=== PATIENT | male | born 1955 | race Caucasian/White ===

== ENCOUNTER 2018-07-23 22:33 | Inpatient (IN) ==
[2018-07-23] MEDS ORDERED: ceFAZolin 2 GM Premix Inj 2 GM/50 ML PIGGYBACK IV.SIG ONE (22:37)
[2018-07-23] MEDS ORDERED: Diphtheria/Tetanus/Pertussis Vaccine Inj 0.5 ML Syringe IM ONE (22:37)
[2018-07-23] MEDS ORDERED: Lidocaine 2%/Epinephrine 1:100,000 30 ML MDV INFILTRATN ONE (22:38)
[2018-07-23] MEDS ORDERED: Sod Chloride 0.9% Inj 1,000 ML IV.CONT SCH (22:45)
--- NOTE | 2018-07-23 22:54 | ED ---
HPI General Chief complaint: Fall Stated complaint: fall Time Seen by Provider: 07/23/18 22:37 Source: patient Limitations: altered mental status (Related to alcohol intoxication) History of Present Illness HPI narrative: The patient is a 63 year old male who presents to the [facility] emergency department with a history of tripping and falling on stairs at [address] prior to arrival. The patient fell face first and hit his jaw. There was no reported loss of consciousness. The patient had 2 lacerations noted to his face, one on the lip and one involving the jaw. The patient reports having severe jaw pain. The patient has altered mentation with a GCS reportedly of 2 prior to arrival, however according to ambulance services the patient had been drinking alcohol this evening and was altered related to alcohol prior to falling. The patient reports that he is a daily drinker. He reports that he had 8 drinks today. He reports that he had 7 beers and 1 liquor drink at dinner. He denies having any neck pain, numbness or tingling to his extremities, weakness of his extremities. He denies having any chest pain, chest pressure, or shortness of breath. The patient is unsure when his tetanus was last updated. On review of systems otherwise, the patient denies having any known recent fevers, cough, congestion vomiting, diarrhea, urinary symptoms, or other neurologic symptoms. Related Data Home Medications Medication Instructions Recorded Confirmed No Known Home Medications 07/23/18 07/23/18 Allergies Allergy/AdvReac Type Severity Reaction Status Date / Time No Known Allergies Allergy Verified 07/23/18 22:38 Review of Systems ROS: all other systems reviewed are negative PMFSH Medical History Medical History Patient denies medical problems (Acute) Surgical History Surgical History No history of previous surgery (Acute) History of appendectomy (Acute) Social History Social History Substance History: No History of Abuse Second Hand Smoke Exposure: Yes Smoking Status: Light tobacco smoker Tobacco Type: Cigarettes How Often Do You Have a Drink Containing Alcohol: 4 or more times a week Recent Travel in [facility] within the Last 8 Weeks: No Recent Out of Country Travel within the Last 8 Weeks: No Immunization History Tetanus Immunization: Unsure Exam Const General: cooperative, no acute distress and well developed Nutritional Appearance: well nourished Orientation: alert, awake, oriented to person, oriented to place and not oriented to time [facility] Head: normocephalic and other (Patient has evidence of trauma to his face, tenderness on palpation of his mandible bilaterally, upper maxilla. In the midline just above his incisors.) Nose: other Face and sinus: other (Tender to palpation over the mandible) Mouth: moist mucous membranes Throat: posterior oropharynx normal and uvula midline Eyes Sclera: normal sclerae Pupils: PERRL Neck Neck: trachea midline, no JVD and other (The patient has a cervical collar in place. The patient arrives on a backboard.) Chest Chest: no crepitus and no tenderness Resp Effort & Inspection: no use of accessory muscles Auscultation: clear to auscultation bilaterally Cardio Rate: regular rate Rhythm: regular rhythm Heart Sounds: no murmurs GI Inspection: non-distended Palpation: soft, no hepatosplenomegaly and nontender Back/Spine/Pelvis Back: no CVA tenderness Thoracic/Lumbar Spine: No thoracic spinal tenderness and No lumbar spinal tenderness Skin General: dry skin (warm) Trauma: laceration (The patient has 2 lacerations on the face one involving the lower lip, the other one involving the chin.) Neuro General: alert, awake and oriented (Person and place, however not time.) Cranial Nerves: CN's II-XI intact bilaterally Speech: other Motor: no movement abnormalities noted (The patient's speech is slurred on examination. The patient has an odor of alcohol about him. ) Sensory Exam: no sensory deficits noted Extrem General: normal to inspection (2+ pulses in all 4 extremities.), no calf tenderness, no clubbing, no cyanosis and no edema Right upper extremity: normal to inspection and full ROM Left upper extremity: normal to inspection and full ROM Right lower extremity: normal to inspection and full ROM Left lower extremity: normal to inspection and full ROM Psych Mood: congruent mood Affect: normal affect Judgment: judgment good Procedures Laceration Laceration 1: Site: lip Size (cm): 2 Description: linear and clean Depth: simple, single layer Anesthetic used: lidocaine 1% Anesthesia technique:: local infiltration Amount (mL): 2 Pre-repair:: wound explored, irrigated extensively and deep structures intact Skin layer closed with: prolene Size (cm): 5-0 Number of sutures:: 2 Size:: 5-0 Number of sutures: 2 Tendon layer closed with: prolene Technique:: simple interrupted Laceration 2: Site: lip Size (cm): 3.5 Description: linear Depth: simple, single layer Anesthetic used: lidocaine 1% Anesthesia technique:: local infiltration and nerve block (Mental block) Amount (mL): 6 Pre-repair:: wound explored and irrigated extensively Size (cm): 5-0 Number of sutures:: 7 Technique:: simple, interrupted Laceration 3: Site: face (Chin) Size (cm): 4 Description: linear Depth: simple, single layer Anesthetic used: lidocaine 1% Amount (mL): 4 Pre-repair:: wound explored, irrigated extensively and deep structures intact Skin layer closed with: prolene Size (cm): 5-0 Number of sutures:: 1 Technique:: running Course Initial Documented Vital Signs Pulse Rate 88 07/23/18 22:36 Respiratory Rate 20 07/23/18 22:36 Blood Pressure 146/90 H 07/23/18 22:36 Pulse Oximetry 98 07/23/18 22:36 Last Documented Vital Signs Temperature 98.8 F 07/24/18 16:00 Pulse Rate 90 07/24/18 16:00 Respiratory Rate 18 07/24/18 16:00 Blood Pressure 167/94 H 07/24/18 16:00 Pulse Oximetry 96 07/24/18 16:00 Medical Decision Making MDM Narrative Medical decision making narrative: During the course of the patient's emergency department visit, the patient's history, examination, and differential diagnosis were reviewed with the patient. The patient was placed on a music leader with oximetry and frequent blood pressure monitoring. The patient had IV access obtained and blood work sent for analysis. A diagnostic evaluation was started regarding the patient's fall downstairs and facial trauma. The patient was initially provided Ancef 2 g IV, and update to his tetanus, normal saline IV fluids. Morphine for pain, Zofran for nausea. The patient's diagnostic studies are remarkable for an elevated alcohol level at 317, CBC is remarkable for normal hemoglobin, platelets are 165. lymphocytosis at 46.4, monocytosis of 12.8, PT 12, INR 1.2, PTT 23.8, fibrinogen within normal limits, chemistry is unremarkable, troponin I is less than 0.02, urinalysis is unremarkable. CT scan of the brain showed no evidence of acute intracranial hemorrhage, C-spine showed degenerative changes, no other acute abnormality. CT scan of the facial bones revealed multiple facial bone fractures. I spoke to Dr. Gold, the maxillofacial surgeon on-call. He will see the patient in consultation. Regarding the patient's facial lacerations, just the keel and the physician personalized living assistant was consulted regarding wound irrigation and repair. The patient's case including history, pertinent physical examination findings, and laboratory studies were discussed with Dr. Stewart, the trauma surgeon. It was agreed that the patient would be admitted to the trauma service. Medical Screen Exam Complete: Yes Emergency Medical Condition: Yes Differential Diagnosis Differential Diagnosis: Intracranial hemorrhage, versus cervical spine trauma, versus skull fracture, versus facial bone fractures, versus facial lacerations and contusions Medical Records Medical records reviewed: Yes I reviewed the patient's medical records. Lab Data Lab results reviewed: Yes I reviewed the patient's lab results. Result diagrams: 07/24/18 11:50 07/24/18 11:50 Lab Results 07/23/18 07/23/18 07/23/18 Range/Units 22:46 22:46 22:46 WBC 4.9 (4.0-11.0) th/mm3 RBC 4.12 L (4.50-5.90) mil/mm3 Hgb 14.7 (13.0-17.0) gm/dL POC Hgb (Calc) 14.6 (13.0-17.0) g/dL Hct 41.9 (39.0-51.0) % POC Hct 43.0 (39-51.0) % MCV 101.8 H (80.0-100.0) fL MCH 35.6 H (27.0-34.0) pg MCHC 35.0 (32.0-36.0) % RDW 12.6 (11.6-17.2) % Plt Count 165 (150-450) th/mm3 MPV 9.2 (7.0-11.0) fL Neut % (Auto) 35.3 (16.0-70.0) % Lymph % (Auto) 46.4 H (9.0-44.0) % [place] % (Auto) 12.8 H (0.0-8.0) % Eos % (Auto) 4.5 H (0.0-4.0) % Baso % (Auto) 1.0 (0.0-2.0) % Neut # (Auto) 1.7 L (1.8-7.7) th/mm3 Lymph # (Auto) 2.3 (1.0-4.8) th/mm3 [place] # (Auto) 0.6 (0.0-0.9) th/mm3 Eos # (Auto) 0.2 (0.0-0.4) th/mm3 Baso # (Auto) 0.0 (0.0-0.2) th/mm3 WBC Differential . Differential Comment Auto diff final PT 12.0 H (9.8-11.6) sec INR 1.2 Ratio APTT 23.8 L (24.3-30.1) sec Fibrinogen 246 (227-377) mg/dL POC Sodium 142 (137-144) mmol/L Sodium (136-145) meq/L POC Potassium 3.5 L (3.6-5.0) mmol/L Potassium (3.5-5.1) meq/L POC Chloride 101 L (102-111) mmol/L Chloride (98-107) meq/L Carbon Dioxide (21.0-32.0) meq/L Anion Gap (5-15) meq/L POC BUN 4 L (5-21) mg/dL BUN (7-18) mg/dL Creatinine (0.60-1.30) mg/dL POC Creatinine 1.0 (0.6-1.3) mg/dL Estimated GFR (>89) mL/min POC Glucose 154 H (68-110) mg/dL Random Glucose (74-106) mg/dL Calcium (8.5-10.1) mg/dL Troponin I Less than 0.02 L (0.02-0.05) ng/mL Urine Color (Yellw/Straw) Urine Clarity (Clear) Urine pH (5.0-8.5) Ur Specific [place] (1.002-1.035) Urine Protein (Neg-Trace) mg/dL Urine Glucose (UA) (Negative) mg/dL Urine Ketones (Negative) mg/dL Urine Occult Blood (Negative) Urine Nitrate (Negative) Urine Bilirubin (Negative) Urine Urobilinogen (Less than 2) mg/dL Ur Leukocyte Esterase (Negative) Urine RBC (0-3) /hpf Urine WBC (0-5) /hpf Urine Mucus (Occasional) /lpf Micro UA Comment Ur Microscopic Review Urine Culture Comments Urine Opiates Screen (Neg) Ur Barbiturates Screen (Neg) Ur Amphetamines Screen (Neg) U Benzodiazepines Scrn (Neg) Urine Cocaine Screen (Neg) U Cannabinoids Screen (Neg) Serum Alcohol 317 H (0-5) mg/dL Blood Type Blood Type Recheck Antibody Screen 07/23/18 07/24/18 07/24/18 Range/Units 22:46 08:20 08:20 WBC (4.0-11.0) th/mm3 RBC (4.50-5.90) mil/mm3 Hgb (13.0-17.0) gm/dL POC Hgb (Calc) (13.0-17.0) g/dL Hct (39.0-51.0) % POC Hct (39-51.0) % MCV (80.0-100.0) fL MCH (27.0-34.0) pg MCHC (32.0-36.0) % RDW (11.6-17.2) % Plt Count (150-450) th/mm3 MPV (7.0-11.0) fL Neut % (Auto) (16.0-70.0) % Lymph % (Auto) (9.0-44.0) % [place] % (Auto) (0.0-8.0) % Eos % (Auto) (0.0-4.0) % Baso % (Auto) (0.0-2.0) % Neut # (Auto) (1.8-7.7) th/mm3 Lymph # (Auto) (1.0-4.8) th/mm3 [place] # (Auto) (0.0-0.9) th/mm3 Eos # (Auto) (0.0-0.4) th/mm3 Baso # (Auto) (0.0-0.2) th/mm3 WBC Differential Differential Comment PT (9.8-11.6) sec INR Ratio APTT (24.3-30.1) sec Fibrinogen (227-377) mg/dL POC Sodium (137-144) mmol/L Sodium (136-145) meq/L POC Potassium (3.6-5.0) mmol/L Potassium (3.5-5.1) meq/L POC Chloride (102-111) mmol/L Chloride (98-107) meq/L Carbon Dioxide (21.0-32.0) meq/L Anion Gap (5-15) meq/L POC BUN (5-21) mg/dL BUN (7-18) mg/dL Creatinine (0.60-1.30) mg/dL POC Creatinine (0.6-1.3) mg/dL Estimated GFR (>89) mL/min POC Glucose (68-110) mg/dL Random Glucose (74-106) mg/dL Calcium (8.5-10.1) mg/dL Troponin I (0.02-0.05) ng/mL Urine Color Yellow (Yellw/Straw) Urine Clarity Clear (Clear) Urine pH 5.0 (5.0-8.5) Ur Specific [place] 1.011 (1.002-1.035) Urine Protein Negative (Neg-Trace) mg/dL Urine Glucose (UA) Negative (Negative) mg/dL Urine Ketones Negative (Negative) mg/dL Urine Occult Blood Negative (Negative) Urine Nitrate Negative (Negative) Urine Bilirubin Negative (Negative) Urine Urobilinogen Less than 2 (Less than 2) mg/dL Ur Leukocyte Esterase Negative (Negative) Urine RBC 1 (0-3) /hpf Urine WBC 1 (0-5) /hpf Urine Mucus Few H (Occasional) /lpf Micro UA Comment Culture not ind Ur Microscopic Review Not Reportable Urine Culture Comments Culture not ind Urine Opiates Screen Pos H (Neg) Ur Barbiturates Screen Neg (Neg) Ur Amphetamines Screen Neg (Neg) U Benzodiazepines Scrn Neg (Neg) Urine Cocaine Screen Neg (Neg) U Cannabinoids Screen Neg (Neg) Serum Alcohol (0-5) mg/dL Blood Type O Positive Blood Type Recheck Required Antibody Screen Negative 07/24/18 07/24/18 Range/Units 11:50 11:50 WBC 7.3 (4.0-11.0) th/mm3 RBC 3.98 L (4.50-5.90) mil/mm3 Hgb 14.3 (13.0-17.0) gm/dL POC Hgb (Calc) (13.0-17.0) g/dL Hct 40.0 (39.0-51.0) % POC Hct (39-51.0) % MCV 100.4 H (80.0-100.0) fL MCH 36.0 H (27.0-34.0) pg MCHC 35.9 (32.0-36.0) % RDW 12.6 (11.6-17.2) % Plt Count 140 L (150-450) th/mm3 MPV 8.7 (7.0-11.0) fL Neut % (Auto) (16.0-70.0) % Lymph % (Auto) (9.0-44.0) % [place] % (Auto) (0.0-8.0) % Eos % (Auto) (0.0-4.0) % Baso % (Auto) (0.0-2.0) % Neut # (Auto) (1.8-7.7) th/mm3 Lymph # (Auto) (1.0-4.8) th/mm3 [place] # (Auto) (0.0-0.9) th/mm3 Eos # (Auto) (0.0-0.4) th/mm3 Baso # (Auto) (0.0-0.2) th/mm3 WBC Differential Differential Comment PT (9.8-11.6) sec INR Ratio APTT (24.3-30.1) sec Fibrinogen (227-377) mg/dL POC Sodium (137-144) mmol/L Sodium 142 (136-145) meq/L POC Potassium (3.6-5.0) mmol/L Potassium 3.8 (3.5-5.1) meq/L POC Chloride (102-111) mmol/L Chloride 108 H (98-107) meq/L Carbon Dioxide 25.0 (21.0-32.0) meq/L Anion Gap 9 (5-15) meq/L POC BUN (5-21) mg/dL BUN 5 L (7-18) mg/dL Creatinine 0.63 (0.60-1.30) mg/dL POC Creatinine (0.6-1.3) mg/dL Estimated GFR Greater than 89 (>89) mL/min POC Glucose (68-110) mg/dL Random Glucose 107 H (74-106) mg/dL Calcium 8.2 L (8.5-10.1) mg/dL Troponin I (0.02-0.05) ng/mL Urine Color (Yellw/Straw) Urine Clarity (Clear) Urine pH (5.0-8.5) Ur Specific [place] (1.002-1.035) Urine Protein (Neg-Trace) mg/dL Urine Glucose (UA) (Negative) mg/dL Urine Ketones (Negative) mg/dL Urine Occult Blood (Negative) Urine Nitrate (Negative) Urine Bilirubin (Negative) Urine Urobilinogen (Less than 2) mg/dL Ur Leukocyte Esterase (Negative) Urine RBC (0-3) /hpf Urine WBC (0-5) /hpf Urine Mucus (Occasional) /lpf Micro UA Comment Ur Microscopic Review Urine Culture Comments Urine Opiates Screen (Neg) Ur Barbiturates Screen (Neg) Ur Amphetamines Screen (Neg) U Benzodiazepines Scrn (Neg) Urine Cocaine Screen (Neg) U Cannabinoids Screen (Neg) Serum Alcohol (0-5) mg/dL Blood Type Blood Type Recheck Antibody Screen Imaging Data Radiologist's impression: Chest X-Ray 07/23/18 22:37 CONCLUSION: No acute cardiopulmonary process. Fracture deformity at the lateral sixth rib. The age of this is not known. Pelvis X-Ray 07/23/18 22:37 CONCLUSION: Negative AP pelvis. Cervical Spine CT 07/23/18 22:38 CONCLUSION: 1. No acute bony injury seen. 2. Degenerative change as described above. Face CT 07/23/18 22:38 CONCLUSION: 1. Fracturing of the mandibular condyle regions bilaterally with displacement of the condylar heads. 2. Fracturing through the anterior aspect of the mandible slightly to the left of midline. 3. Fracturing the anterior inferior aspect of the maxilla around the upper incisor teeth. Head CT 07/23/18 22:38 CONCLUSION: 1. No acute intracranial abnormality. 2. Mild cortical atrophy. 3. Mandibular condyle fractures. The patient is to have a CT of the facial bones. . Wrist X-Ray 07/24/18 00:00 CONCLUSION: Minimally displaced oblique transverse distal left radial fracture Discharge Plan Discharge Disposition Patient Disposition: 30 Still Patient Discharge Details Diagnosis: Fall, Fracture, facial bones Physicians Team ED Provider: Sanjuana Mitchell ED Midlevel Provider: Jerry Radford Primary Care Provider: UNKNOWN, Attending Provider: Fab Martin Other Providers: Eddi Rick ; Mahendra Mckeon ; Systems[facility] ; Fab Martin ; Ruby Hernandez ; Chavez Sinha ; Candelaria Bonilla ; Abida Guajardo ; Yoko Mcbride ; Farhat Redman ; Lobito Presley ; Morgan Domingo Discharge Interventions Interventions: ED Discharge Assessment Last Done: 07/24/18 13:54 Status ED Status: Left Department Discharge Information Discharge Date/Time: 07/24/18 13:55
[2018-07-23] MEDS ORDERED: Morphine Inj 4 MG/ML Vial IV.PUSH ONE (22:59)
[2018-07-23 23:00] LABS: Eos # (Auto) 0.2 th/mm3 (0.0-0.4); Eos % (Auto) 4.5 % (0.0-4.0); Hematocrit 41.9 % (39.0-51.0); Hemoglobin 14.7 gm/dL (13.0-17.0); Lymph # (Auto) 2.3 th/mm3 (1.0-4.8); Lymph % (Auto) 46.4 % (9.0-44.0); Mean Corpuscular Hemoglobin 35.6 pg (27.0-34.0); Mean Corpuscular Volume 101.8 fL (80.0-100.0); Mean Platelet Volume 9.2 fL (7.0-11.0); Mono # (Auto) 0.6 th/mm3 (0.0-0.9); Mono % (Auto) 12.8 % (0.0-8.0); Neut # (Auto) 1.7 th/mm3 (1.8-7.7); Neut % (Auto) 35.3 % (16.0-70.0); Platelet Count 165 th/mm3 (150-450); Red Blood Count 4.12 mil/mm3 (4.50-5.90); Red Cell Distribution Width 12.6 % (11.6-17.2); White Blood Count 4.9 th/mm3 (4.0-11.0)
[2018-07-23 23:11] LABS: Activated Partial Thrombo Time 23.8 sec (24.3-30.1); INR 1.2 Ratio
--- NOTE | 2018-07-23 23:31 | XR ---
EXAM DATE: 07/23/2018 10:37 PM EDT AGE/SEX: 63 years / Male INDICATIONS: Fall, short of breath. CLINICAL DATA: This is the patient's initial encounter. Patient reports that signs and symptoms have been present for 1 day and indicates a pain score of 0/10. MEDICAL/SURGICAL HISTORY: Non-responsive. Non-responsive. COMPARISON: No prior exams available for comparison. FINDINGS: A single AP view of the chest demonstrates the lungs to be symmetrically aerated without evidence of mass, infiltrate or effusion. The cardiomediastinal contours are unremarkable. There is a deformity at the lateral left sixth rib. The age of this deformity is not known. CONCLUSION: No acute cardiopulmonary process. Fracture deformity at the lateral sixth rib. The age of this is not known. Electronically signed by: Clayton Pearson MD 07/23/2018 11:30 PM EDT
--- NOTE | 2018-07-23 23:32 | XR ---
EXAM DATE: 07/23/2018 10:37 PM EDT AGE/SEX: 63 years / Male INDICATIONS: Fall, trauma. CLINICAL DATA: This is the patient's initial encounter. Patient reports that signs and symptoms have been present for 1 day and indicates a pain score of Nonresponsive. MEDICAL/SURGICAL HISTORY: Non-responsive. Non-responsive. COMPARISON: No prior exams available for comparison. FINDINGS: Examination of the pelvis demonstrates no evidence of fracture or dislocation. Bony mineralization i s normal. There is no widening of the sacroiliac joints. No foreign body is identified. CONCLUSION: Negative AP pelvis. Electronically signed by: Clayton Pearson MD 07/23/2018 11:30 PM EDT
[2018-07-23 23:33] LABS: Alcohol 317 mg/dL (0-5)
--- NOTE | 2018-07-23 23:34 | CT ---
EXAM DATE: 07/23/2018 10:41 PM EDT AGE/SEX: 63 years / Male INDICATIONS: Trauma, fall down stairs. Laceration to chin. CLINICAL DATA: This is the patient's initial encounter. Patient reports that signs and symptoms have been present for 1 day and indicates a pain score of 5/10. MEDICAL/SURGICAL HISTORY: None. None. RADIATION DOSE: 66.34 CTDI (mGy) COMPARISON: [facility] [place], CT FACIAL BONES WO CON, 07/23/2018. . TECHNIQUE: CT of the head without contrast. Using automated exposure control and adjustment of the mA and/or kV according to patient size, radiation dose was kept as low as reasonably achievable to ob tain optimal diagnostic quality images. DICOM format image data is available electronically for revi ew and comparison. FINDINGS: Cerebrum: The ventricles and cortical sulci are widened. No evidence of midline shift, mass lesion, hemorrhage or acute infarction. No extraaxial fluid collections are seen. Posterior Fossa: The cerebellum and brainstem are intact. The 4th ventricle is midline. The cerebe llopontine angle is unremarkable. Extracranial: The visualized portion of the orbits is intact. Skull: The calvaria is intact. No evidence of skull fracture. There are mandibular condyle fracture seen bilaterally. CONCLUSION: 1. No acute intracranial abnormality. 2. Mild cortical atrophy. 3. Mandibular condyle fractures. The patient is to have a CT of the facial bones. . Electronically signed by: Clayton Pearson MD 07/23/2018 11:32 PM EDT
--- NOTE | 2018-07-23 23:38 | CT ---
EXAM DATE: 07/23/2018 10:41 PM EDT AGE/SEX: 63 years / Male INDICATIONS: Trauma, fall down stairs. Laceration to chin. CLINICAL DATA: This is the patient's initial encounter. Patient reports that signs and symptoms have been present for 1 day and indicates a pain score of 6/10. MEDICAL/SURGICAL HISTORY: None. None. RADIATION DOSE: 19.98 CTDI (mGy) COMPARISON: No prior exams available for comparison. TECHNIQUE: Contiguous axial images were obtained using helical multirow detector technique. The vol umetric data was post-processed with multiplanar reconstruction in oblique axial, sagittal, and coron al planes. Using automated exposure control and adjustment of the mA and/or kV according to patient s ize, radiation dose was kept as low as reasonably achievable to obtain optimal diagnostic quality eyal ges. DICOM format image data is available electronically for review and comparison. FINDINGS: Vertebrae: Normal vertebral body height. Alignment: Normal. No subluxation. C2-3: The bony spinal canal is normal in size. No evidence of disc bulge or herniation. The neural foramina are bilaterally patent. Mild anterior marginal osteophytes are present. C3-4: The distance is minimal loss of height. There is mild disc bulge. Osteophytic ridging is seen anteriorly and posteriorly. Mild impression on the thecal sac. The neural foramina are patent bilater ally. There is uncovertebral hypertrophy. C4-5: There is minimal posterior disc bulge. There is prominent anterior marginal osteophytes. Signi ficant stenosis is not seen. The neural foramina are patent bilaterally. There is mild facet hypertro phy especially on the right. C5-6: The disc demonstrates loss of height. There is mild to moderate diffuse disc bulge and osteoph ytic ridging being asymmetric and worse on the right. There is uncovertebral hypertrophy being worse on the left. Prominent anterior marginal osteophytes are seen. The neural foramina are grossly patent . C6-7: Disc demonstrates loss of height. There is mild disc bulge and osteophytic ridging. There is u ncovertebral hypertrophy being worse than the left. There is mild narrowing of the left neural forami na. Right neural foramina appears patent. C7-T1: The bony spinal canal is normal in size. No evidence of disc bulge or herniation. The neura l foramina are bilaterally patent. CONCLUSION: 1. No acute bony injury seen. 2. Degenerative change as described above. Electronically signed by: Clayton Pearson MD 07/23/2018 11:37 PM EDT
--- NOTE | 2018-07-23 23:44 | CT ---
EXAM DATE: 07/23/2018 10:41 PM EDT AGE/SEX: 63 years / Male INDICATIONS: Trauma, fall down stairs. Laceration to chin. CLINICAL DATA: This is the patient's initial encounter. Patient reports that signs and symptoms have been present for 1 day and indicates a pain score of 7/10. MEDICAL/SURGICAL HISTORY: None. None. RADIATION DOSE: 21.96 CTDI (mGy) COMPARISON: No prior exams available for comparison. TECHNIQUE: Contiguous images in the axial and coronal planes were obtained using helical multirow de tector technique. Using automated exposure control and adjustment of the mA and/or kV according to p atient size, radiation dose was kept as low as reasonably achievable to obtain optimal diagnostic edda lity images. DICOM format image data is available electronically for review and comparison. FINDINGS: There is fracturing of the mandibular condyle regions bilaterally. The condylar heads are displaced a nteriorly. The fracture on the left extends through the mandibular head. There is also fracturing of the anterior aspect of the mandible just to the left of midline. The mandibular fracture is seen betw een the 2 lower incisors. There is also fracturing of the anterior maxilla around the upper incisor t eeth Fracturing Orbits: The orbital and infraorbital osseous structures are intact. The retroconal structures have a normal configuration. No radiopaque foreign bodies are seen. Nasal Bone: The nasal bone and maxillary spine are intact. Zygomatic Arches: Symmetric without evidence of fracture. Sinuses: The maxillary, ethmoid, and frontal sinuses are intact. No air-fluid levels seen. Nasal Cavity: The nasal septum is intact and midline. The lacrimal ducts are intact. Soft Tissues: No radiopaque foreign bodies seen. No soft-tissue swelling is seen. Intracranial: No intracranial air seen. Cribriform Plate: Grossly intact. CONCLUSION: 1. Fracturing of the mandibular condyle regions bilaterally with displacement of the condylar heads. 2. Fracturing through the anterior aspect of the mandible slightly to the left of midline. 3. Fracturing the anterior inferior aspect of the maxilla around the upper incisor teeth. Electronically signed by: Clayton Pearson MD 07/23/2018 11:43 PM EDT
[2018-07-24] MEDS ORDERED: Morphine Inj 4 MG/ML Vial IV.PUSH ONE ×3 (00:10→05:00)
[2018-07-24] MEDS: Sod Chloride 0.9% Inj 1,000 ML IV.CONT SCH ×2 (05:34→18:33)
[2018-07-24] MEDS: Pantoprazole Inj 40 MG Vial IV.PUSH SCH (06:24)
[2018-07-24] MEDS ORDERED: Morphine Sulfate Inj 2 MG/ML Vial IV.PUSH PRN (06:37)
[2018-07-24 08:45] LABS: Bilirubin,Urine Negative (Negative); Clarity,Urine Clear (Clear); Color,Urine Yellow (Yellw/Straw); Glucose,Urine (UA) Negative (Negative); Leukocyte Esterase,Urine Negative (Negative); Mucus,Urine Few /lpf (Occasional); Nitrite,Urine Negative (Negative); Specific Gravity,Urine 1.011 (1.002-1.035)
--- NOTE | 2018-07-24 08:52 | XR ---
EXAM DATE: 07/24/2018 12:00 AM EDT AGE/SEX: 63 years / Male INDICATIONS: Left wrist pain, fall. CLINICAL DATA: This is the patient's initial encounter. Patient reports that signs and symptoms have been present for 2 days and indicates a pain score of 3/10. MEDICAL/SURGICAL HISTORY: None. None. COMPARISON: . FINDINGS: There is a minimally displaced fracture involving the distal radius with primarily transverse fractur e just proximal to the epiphyseal region. No significant angulation noted. The carpals appear intact. CONCLUSION: Minimally displaced oblique transverse distal left radial fracture Electronically signed by: Clayton Verdugo MD 07/24/2018 8:50 AM EDT
[2018-07-24 08:55] LABS: Amphetamine Screen,Urine Neg (Neg); Barbiturate Screen,Urine Neg (Neg); Cannabinoid Screen,Urine Neg (Neg); Cocaine Screen,Urine Neg (Neg); Opiate Screen,Urine Pos (Neg)
[2018-07-24] MEDS: Sodium Chloride 0.9% 2 ML Flush BID IV.FLUSH SCH ×2 (09:01→23:02)
--- NOTE | 2018-07-24 09:10 | MH ---
cc: Fab Martin MD DATE OF ADMISSION: 07/24/2018 HISTORY OF PRESENT ILLNESS: This is a 63-year-old male, who was brought in after falling. On evaluation in the emergency room, the patient was noted to have multiple facial fractures. Trauma service was requested for admission. The patient states that he tripped and fell. He is unsure of the distance of the fall. He states he was drinking alcohol prior to this, and he is on vacation. He complains of left wrist pain and face pain. No chest pain, no shortness of breath, no abdominal pain. No paresthesias. No headaches. PAST MEDICAL HISTORY: Negative. PAST SURGICAL HISTORY: Significant for appendectomy. ALLERGIES: HE HAS NO ALLERGIES. SOCIAL HISTORY: He does smoke. He drinks alcohol. FAMILY HISTORY: Noncontributory. PHYSICAL EXAMINATION: GENERAL: He is lying on a stretcher in no acute distress. HEENT: His pupils are equal and reactive. Sutured laceration to the lip. NECK: Trachea is midline. NECK: Nontender. No JVD. LUNGS: Clear. CARDIOVASCULAR: Regular. GASTROINTESTINAL: Soft, nontender. MUSCULOSKELETAL: No deformities. NEUROLOGIC: Nonfocal. LABORATORY DATA: The patient's hemoglobin is 14.7. Blood alcohol 317. RADIOLOGIC IMAGES: CT of the head negative. CT of the facial bones reveals fracture of the mandibular condyle bilaterally, fracture through the anterior aspect of the mandibular, and maxilla fracture. CT of the cervical spine: No fracture. Chest x-ray: No acute disease. Pelvic x-ray: No fracture. ASSESSMENT AND PLAN: This is a patient status post fall, while intoxicated with facial fractures. Consult has been placed to oral maxillofacial surgery. The patient is being admitted. We will provide pain management. Monitor respiratory and neurological status. Fab Martin MD JLAdalberto/tawanna , 08:20 AM , 08:28 AM
[2018-07-24] MEDS: Multivitamin Inj 10 ML, Thiamine Inj 100 MG, Folic Acid Inj 1 MG in Sodium Chlor 0.9% I... IV.SIG SCH (10:03)
[2018-07-24] MEDS: Morphine Inj 4 MG/ML Vial IV.PUSH PRN ×4 (10:03→23:56)
[2018-07-24 12:02] LABS: Hemoglobin 14.3 gm/dL (13.0-17.0); Mean Corpuscular HGB Conc 35.9 % (32.0-36.0); Mean Corpuscular Volume 100.4 fL (80.0-100.0); Mean Platelet Volume 8.7 fL (7.0-11.0); Platelet Count 140 th/mm3 (150-450); Red Blood Count 3.98 mil/mm3 (4.50-5.90); Red Cell Distribution Width 12.6 % (11.6-17.2); White Blood Count 7.3 th/mm3 (4.0-11.0)
[2018-07-24 12:25] LABS: Anion Gap 9 meq/L (5-15); Blood Urea Nitrogen 5 mg/dL (7-18); Calcium 8.2 mg/dL (8.5-10.1); Chloride 108 meq/L (98-107); Glomerular Filtration Rate Greater Than 89 mL/min (>89); Glucose,Random 107 mg/dL (74-106); Potassium 3.8 meq/L (3.5-5.1); Sodium 142 meq/L (136-145)
--- NOTE | 2018-07-24 20:30 | P.CONOP ---
[facility] Orthopedics Consult Note - [facility] Consult date: 07/24/18 Requesting physician: Abida Guajardo Consult reason: fracture, low back pain Chief complaint: Facial Bone Fxs, Facial Lacs, Alcohol Intoxication Narrative: 63 yo M presents s/p fall down stairs. Admitted to trauma for facial fractures. Orthopedics consulted for left distal radius fracture. At bedside, patient endorses left wrist pain. Denies pain elsewhere about the upper/lower extremities. Denies paresthesias. Review of Systems Constitutional: Denies fever(s), Denies weight loss Eyes: Denies blurry vision Ears, Nose, Mouth, and Throat: Denies abnormal hearing Cardiovascular: Denies chest pain, Denies shortness of breath with activity Respiratory: Denies cough Gastrointestinal: Denies abdominal pain Musculoskeletal: Reports joint pain Neurologic: Denies tingling/numbness/burning sensations PMFSH - History History Provided By: Patient - Medical History Medical History: Medical History (Last Updated 07/23/18 @ 22:36 by Joanie Nam RN) Patient denies medical problems - Surgical History Surgical History: Surgical History (Last Updated 07/23/18 @ 22:58 by Sanjuana Mitchell MD) No history of previous surgery History of appendectomy - Tobacco History Second Hand Smoke Exposure: Yes Tobacco Use In Past 30 Days: Yes Smoking Status: Light tobacco smoker Tobacco Type: Cigarettes - Alcohol History How Often Do You Have a Drink Containing Alcohol: 4 or more times a week - Substance Use History Substance History: No History of Abuse - Travel History Recent Travel in the [place] Within the Last 8 Weeks: No Recent Travel Out of the Country Within the Last 8 Weeks: No - Immunization History Tetanus Immunization: Unsure Hx Influenza Vaccine This Season: Yes Medications and Allergies Active Medications: Active Medications Al Hydroxide/Mg Hydroxide (Milk Of Magnesia Liq) 30 ml PO Q6H PRN PRN Reason: CONSTIPATION Enalaprilat (Vasotec Inj) 1.25 mg IV.PUSH Q8H PRN PRN Reason: Blood pressure 180/95 Fentanyl (Duragesic 50 Mcg Patch.72hr) 1 patch T-DERMAL Q3D [facility] Last Admin: 07/24/18 13:00 Dose: 1 patch Sodium Chloride (Ns Inj) 1,000 mls @ 100 mls/hr IV.CONT .Q10H [facility] Last Admin: 07/24/18 18:33 Dose: 100 mls/hr Multivitamins 10 ml/ Thiamine HCl 100 mg/ Folic Acid 1 mg/Sodium Chloride 511.2 mls @ 127.8 mls/hr IV.SIG DAILY [facility] Stop: 07/26/18 12:59 Last Infusion: 07/24/18 18:17 Dose: Infused Morphine Sulfate (Morphine Inj) 4 mg IV.PUSH Q3H PRN PRN Reason: BREAKTHROUGH PAIN Last Admin: 07/24/18 15:54 Dose: 4 mg Ondansetron HCl (Zofran Inj) 4 mg IV.PUSH Q6H PRN PRN Reason: NAUSEA OR VOMITING Pantoprazole Sodium (Protonix Inj) 40 mg IV.PUSH Q24H [facility] Last Admin: 07/24/18 06:24 Dose: 40 mg Patch Removal (Remove Old Patch) 1 each T-DERMAL Q3D [facility] Sodium Chloride (Ns Flush) 2 ml IV.FLUSH UNSCH PRN PRN Reason: FLUSH AFTER USING IV ACCESS Sodium Chloride (Ns Flush) 2 ml IV.FLUSH BID [facility] Last Admin: 07/24/18 09:01 Dose: 2 ml Allergies Allergy/AdvReac Type Severity Reaction Status Date / Time No Known Allergies Allergy Verified 07/23/18 22:38 Home Medications Medication Instructions Recorded Confirmed Type No Known Home Medications 07/23/18 07/23/18 History Exam Vital signs: Vital Signs 07/23/18 22:36 07/23/18 22:37 07/23/18 22:38 Temperature Pulse Rate 88 82 Respiratory Rate 20 18 Blood Pressure 146/90 H Pulse Oximetry 98 96 96 07/23/18 23:22 07/24/18 00:00 07/24/18 01:00 Temperature Pulse Rate 88 92 H 92 H Respiratory Rate 20 20 20 Blood Pressure 138/77 141/79 H 120/68 Pulse Oximetry 96 97 96 07/24/18 02:24 07/24/18 02:50 07/24/18 04:54 Temperature Pulse Rate 76 88 82 Respiratory Rate 20 20 Blood Pressure 137/80 117/69 Pulse Oximetry 95 98 07/24/18 05:33 07/24/18 05:36 07/24/18 07:05 Temperature Pulse Rate 84 84 94 H Respiratory Rate 20 20 Blood Pressure 125/73 125/73 Pulse Oximetry 96 96 98 07/24/18 07:34 07/24/18 12:00 07/24/18 16:00 Temperature 98.5 F 98.8 F Pulse Rate 84 90 Respiratory Rate 18 18 Blood Pressure 167/97 H 167/94 H Pulse Oximetry 95 98 96 07/24/18 17:55 Temperature Pulse Rate Respiratory Rate Blood Pressure Pulse Oximetry 96 Intake & Output 07/24/18 07/24/18 07/25/18 06:59 18:59 06:59 Intake Total 1050 / 1050 2904.0 / 2904.0 Output Total 1377 / 1377 Balance 1050 / 1050 1527.0 / 1527.0 Weight 63.503 kg Intake: IV 1050 / 1050 2004.0 / 2004.0 NS Inj 1,000 ML @ 100 mls/hr IV 1000 / 1000 1484 / 1484 .CONT .Q10H [facility] Rx#:[id number] MVI-12 Inj 10 ML Thiamine Inj 520.0 / 520.0 100 MG Folvite Inj 1 MG In NS Inj 500 ML @ 127.8 mls/hr IV. SIG DAILY [facility] Rx#:[id number] Ancef 2 GM Premix Inj 2 gm In 50 / 50 50 ml @ 100 mls/hr IV.SIG ONCE ONE Rx#:[id number] Oral 900 / 900 Output: Urine 1377 / 1377 Other: # Voids 1 - Constitutional no acute distress - Routine HEENT Exam Head: Present: normocephalic, facial swelling - Routine Neck Exam Present: trachea midline - Routine Respiratory Exam Absent: accessory muscle use - Routine Cardiovascular Exam Present: RRR - Routine Abdominal Exam Present: soft. Absent: distended - Routine Extremities Exam Comments: Screening evaluation of bilateral lower and right upper extremity demonstrate painless ROM of the joints without crepitus. There is left wrist edema with tenderness to palpation over the distal radius. Full wrist flex/extension. Full hand ROM. Sensation is in tact the median/radial/ulnar nerve distribution. 2+ radial pulse. - Routine Neurological Exam Present: alert, oriented X3. Absent: motor deficit Results - Labs Result Diagrams: 07/24/18 11:50 07/24/18 11:50 Labs: Laboratory Results - last 24 hr 07/23/18 07/23/18 07/23/18 22:46 22:46 22:46 WBC 4.9 RBC 4.12 L Hgb 14.7 POC Hgb (Calc) 14.6 Hct 41.9 POC Hct 43.0 MCV 101.8 H MCH 35.6 H MCHC 35.0 RDW 12.6 Plt Count 165 MPV 9.2 Neut % (Auto) 35.3 Lymph % (Auto) 46.[address] [place] % (Auto) 12.8 H Eos % (Auto) 4.5 H Baso % (Auto) 1.0 Neut # (Auto) 1.7 L Lymph # (Auto) 2.3 [place] # (Auto) 0.6 Eos # (Auto) 0.2 Baso # (Auto) 0.0 WBC Differential . Differential Comment Auto diff final PT 12.0 H INR 1.2 APTT 23.8 L Fibrinogen 246 POC Sodium 142 Sodium POC Potassium 3.5 L Potassium POC Chloride 101 L Chloride Carbon Dioxide Anion Gap POC BUN 4 L BUN Creatinine POC Creatinine 1.0 Estimated GFR POC Glucose 154 H Random Glucose Calcium Troponin I Less than 0.02 L Urine Color Urine Clarity Urine pH Ur Specific [place] Urine Protein Urine Glucose (UA) Urine Ketones Urine Occult Blood Urine Nitrate Urine Bilirubin Urine Urobilinogen Ur Leukocyte Esterase Urine RBC Urine WBC Urine Mucus Micro UA Comment Ur Microscopic Review Urine Culture Comments Urine Opiates Screen Ur Barbiturates Screen Ur Amphetamines Screen U Benzodiazepines Scrn Urine Cocaine Screen U Cannabinoids Screen Serum Alcohol 317 H Blood Type Blood Type Recheck Antibody Screen 07/23/18 07/24/18 07/24/18 22:46 08:20 08:20 WBC RBC Hgb POC Hgb (Calc) Hct POC Hct MCV MCH MCHC RDW Plt Count MPV Neut % (Auto) Lymph % (Auto) [place] % (Auto) Eos % (Auto) Baso % (Auto) Neut # (Auto) Lymph # (Auto) [place] # (Auto) Eos # (Auto) Baso # (Auto) WBC Differential Differential Comment PT INR APTT Fibrinogen POC Sodium Sodium POC Potassium Potassium POC Chloride Chloride Carbon Dioxide Anion Gap POC BUN BUN Creatinine POC Creatinine Estimated GFR POC Glucose Random Glucose Calcium Troponin I Urine Color Yellow Urine Clarity Clear Urine pH 5.0 Ur Specific [place] 1.011 Urine Protein Negative Urine Glucose (UA) Negative Urine Ketones Negative Urine Occult Blood Negative Urine Nitrate Negative Urine Bilirubin Negative Urine Urobilinogen Less than 2 Ur Leukocyte Esterase Negative Urine RBC 1 Urine WBC 1 Urine Mucus Few H Micro UA Comment Culture not ind Ur Microscopic Review Not Reportable Urine Culture Comments Culture not ind Urine Opiates Screen Pos H Ur Barbiturates Screen Neg Ur Amphetamines Screen Neg U Benzodiazepines Scrn Neg Urine Cocaine Screen Neg U Cannabinoids Screen Neg Serum Alcohol Blood Type O Positive Blood Type Recheck Required Antibody Screen Negative 07/24/18 07/24/18 11:50 11:50 WBC 7.3 RBC 3.98 L Hgb 14.3 POC Hgb (Calc) Hct 40.0 POC Hct MCV 100.4 H MCH 36.0 H MCHC 35.9 RDW 12.6 Plt Count 140 L MPV 8.7 Neut % (Auto) Lymph % (Auto) [place] % (Auto) Eos % (Auto) Baso % (Auto) Neut # (Auto) Lymph # (Auto) [place] # (Auto) Eos # (Auto) Baso # (Auto) WBC Differential Differential Comment PT INR APTT Fibrinogen POC Sodium Sodium 142 POC Potassium Potassium 3.8 POC Chloride Chloride 108 H Carbon Dioxide 25.0 Anion Gap 9 POC BUN BUN 5 L Creatinine 0.63 POC Creatinine Estimated GFR Greater than 89 POC Glucose Random Glucose 107 H Calcium 8.2 L Troponin I Urine Color Urine Clarity Urine pH Ur Specific [place] Urine Protein Urine Glucose (UA) Urine Ketones Urine Occult Blood Urine Nitrate Urine Bilirubin Urine Urobilinogen Ur Leukocyte Esterase Urine RBC Urine WBC Urine Mucus Micro UA Comment Ur Microscopic Review Urine Culture Comments Urine Opiates Screen Ur Barbiturates Screen Ur Amphetamines Screen U Benzodiazepines Scrn Urine Cocaine Screen U Cannabinoids Screen Serum Alcohol Blood Type Blood Type Recheck Antibody Screen - Diagnostic results Imaging: Impressions Chest X-Ray 07/23/18 22:37 CONCLUSION: No acute cardiopulmonary process. Fracture deformity at the lateral sixth rib. The age of this is not known. Pelvis X-Ray 07/23/18 22:37 CONCLUSION: Negative AP pelvis. Cervical Spine CT 07/23/18 22:38 CONCLUSION: 1. No acute bony injury seen. 2. Degenerative change as described above. Face CT 07/23/18 22:38 CONCLUSION: 1. Fracturing of the mandibular condyle regions bilaterally with displacement of the condylar heads. 2. Fracturing through the anterior aspect of the mandible slightly to the left of midline. 3. Fracturing the anterior inferior aspect of the maxilla around the upper incisor teeth. Head CT 07/23/18 22:38 CONCLUSION: 1. No acute intracranial abnormality. 2. Mild cortical atrophy. 3. Mandibular condyle fractures. The patient is to have a CT of the facial bones. . Wrist X-Ray 07/24/18 00:00 CONCLUSION: Minimally displaced oblique transverse distal left radial fracture Wrist/Hand x-ray: report reviewed, image reviewed Assessment and Plan - Assessment and Plan 63 yo M s/p fall with a nondisplaced distal radius fracture. - [employer] to apply short arm splint - NWB left upper extremity - Edema control, finger ROM - Recommend non-op management. Reviewed this plan of care with patient. Plans for outpatient follow up near his home in [place] for transition to custom made OT splint versus short arm cast. - All questions/concerns addressed at bedside.
--- NOTE | 2018-07-24 20:37 | P.CON ---
History of Present Illness Service: Plastic surgery Consult date: 07/24/18 Primary Care Provider: UNKNOWN Chief Complaint: Facial fractures History of Present Illness: History obtained from chart and patient HPI narrative: The patient is a 63 year old male who presents to the [facility] emergency department with a history of tripping and falling on stairs at [place] prior to arrival. The patient fell face first and hit his jaw. There was no reported loss of consciousness. The patient had 2 lacerations noted to his face, one on the lip and one involving the jaw. The patient reported having severe jaw pain. The patient has altered mentation with a GCS reportedly of 2 prior to arrival, however according to ambulance services the patient had been drinking alcohol this evening and was altered related to alcohol prior to falling. The patient reports that he is a daily drinker. He reports that he had 8 drinks today. He reports that he had 7 beers and 1 liquor drink at dinner. He denies having any neck pain, numbness or tingling to his extremities, weakness of his extremities. He denies having any chest pain, chest pressure, or shortness of breath. The patient is unsure when his tetanus was last updated. On review of systems otherwise, the patient denies having any known recent fevers, cough, congestion vomiting, diarrhea, urinary symptoms, or other neurologic symptoms. Related Data Home Medications Medication Instructions Recorded Confirmed No Known Home Medications 07/23/18 07/23/18 Allergies Allergy/AdvReac Type Severity Reaction Status Date / Time No Known Allergies Allergy Verified 07/23/18 22:38 Review of Systems ROS: all other systems reviewed are negative except as noted in the HPI [facility] Medical History Medical History Patient denies medical problems (Acute) Surgical History Surgical History No history of previous surgery (Acute) History of appendectomy (Acute) Social History Social History Substance History: No History of Abuse Second Hand Smoke Exposure: Yes Smoking Status: Light tobacco smoker Tobacco Type: Cigarettes How Often Do You Have a Drink Containing Alcohol: 4 or more times a week Recent Travel in [facility] within the Last 8 Weeks: No Recent Out of Country Travel within the Last 8 Weeks: No Immunization History Tetanus Immunization: Unsure Family history noncontributory to presenting complaint [facility] - History History Provided By: Patient - Medical History Medical History: Medical History (Last Updated 07/23/18 @ 22:36 by Joanie Nam RN) Patient denies medical problems - Surgical History Surgical History: Surgical History (Last Updated 07/23/18 @ 22:58 by Sanjuana Mitchell MD) No history of previous surgery History of appendectomy - Tobacco History Second Hand Smoke Exposure: Yes Tobacco Use In Past 30 Days: Yes Smoking Status: Light tobacco smoker Tobacco Type: Cigarettes - Alcohol History How Often Do You Have a Drink Containing Alcohol: 4 or more times a week - Substance Use History Substance History: No History of Abuse - Travel History Recent Travel in the [place] Within the Last 8 Weeks: No Recent Travel Out of the Country Within the Last 8 Weeks: No - Immunization History Tetanus Immunization: Unsure Hx Influenza Vaccine This Season: Yes Medications and Allergies Active Medications: Active Medications Al Hydroxide/Mg Hydroxide (Milk Of Magntonio Liq) 30 ml PO Q6H PRN PRN Reason: CONSTIPATION Enalaprilat (Vasotec Inj) 1.25 mg IV.PUSH Q8H PRN PRN Reason: Blood pressure 180/95 Fentanyl (Duragesic 50 Mcg Patch.72hr) 1 patch T-DERMAL Q3D [facility] Last Admin: 07/24/18 13:00 Dose: 1 patch Sodium Chloride (Ns Inj) 1,000 mls @ 100 mls/hr IV.CONT .Q10H [facility] Last Admin: 07/24/18 18:33 Dose: 100 mls/hr Multivitamins 10 ml/ Thiamine HCl 100 mg/ Folic Acid 1 mg/Sodium Chloride 511.2 mls @ 127.8 mls/hr IV.SIG DAILY [facility] Stop: 07/26/18 12:59 Last Infusion: 07/24/18 18:17 Dose: Infused Morphine Sulfate (Morphine Inj) 4 mg IV.PUSH Q3H PRN PRN Reason: BREAKTHROUGH PAIN Last Admin: 07/24/18 15:54 Dose: 4 mg Ondansetron HCl (Zofran Inj) 4 mg IV.PUSH Q6H PRN PRN Reason: NAUSEA OR VOMITING Pantoprazole Sodium (Protonix Inj) 40 mg IV.PUSH Q24H [facility] Last Admin: 07/24/18 06:24 Dose: 40 mg Patch Removal (Remove Old Patch) 1 each T-DERMAL Q3D [facility] Sodium Chloride (Ns Flush) 2 ml IV.FLUSH UNSCH PRN PRN Reason: FLUSH AFTER USING IV ACCESS Sodium Chloride (Ns Flush) 2 ml IV.FLUSH BID [facility] Last Admin: 07/24/18 09:01 Dose: 2 ml Allergies Allergy/AdvReac Type Severity Reaction Status Date / Time No Known Allergies Allergy Verified 07/23/18 22:38 Home Medications Medication Instructions Recorded Confirmed Type No Known Home Medications 07/23/18 07/23/18 History Physical Exam Vital signs: Vital Signs 07/23/18 22:36 07/23/18 22:37 07/23/18 22:38 Temperature Pulse Rate 88 82 Respiratory Rate 20 18 Blood Pressure 146/90 H Pulse Oximetry 98 96 96 07/23/18 23:22 07/24/18 00:00 07/24/18 01:00 Temperature Pulse Rate 88 92 H 92 H Respiratory Rate 20 20 20 Blood Pressure 138/77 141/79 H 120/68 Pulse Oximetry 96 97 96 07/24/18 02:24 07/24/18 02:50 07/24/18 04:54 Temperature Pulse Rate 76 88 82 Respiratory Rate 20 20 Blood Pressure 137/80 117/69 Pulse Oximetry 95 98 07/24/18 05:33 07/24/18 05:36 07/24/18 07:05 Temperature Pulse Rate 84 84 94 H Respiratory Rate 20 20 Blood Pressure 125/73 125/73 Pulse Oximetry 96 96 98 07/24/18 07:34 07/24/18 12:00 07/24/18 16:00 Temperature 98.5 F 98.8 F Pulse Rate 84 90 Respiratory Rate 18 18 Blood Pressure 167/97 H 167/94 H Pulse Oximetry 95 98 96 07/24/18 17:55 Temperature Pulse Rate Respiratory Rate Blood Pressure Pulse Oximetry 96 Intake & Output 07/24/18 07/24/18 07/25/18 06:59 18:59 06:59 Intake Total 1050 / 1050 2904.0 / 2904.0 Output Total 1377 / 1377 Balance 1050 / 1050 1527.0 / 1527.0 Weight 63.503 kg Intake: IV 1050 / 1050 2004.0 / 2004.0 NS Inj 1,000 ML @ 100 mls/hr IV 1000 / 1000 1484 / 1484 .CONT .Q10H [facility] Rx#:[id number] MVI-12 Inj 10 ML Thiamine Inj 520.0 / 520.0 100 MG Folvite Inj 1 MG In NS Inj 500 ML @ 127.8 mls/hr IV. SIG DAILY [facility] Rx#:[id number] Ancef 2 GM Premix Inj 2 gm In 50 / 50 50 ml @ 100 mls/hr IV.SIG ONCE ONE Rx#:[id number] Oral 900 / 900 Output: Urine 1377 / 1377 Other: # Voids 1 Narrative: No apparent anxiety moist mucous membranes PERRLA skin without rash respirations nonlabored moves all 4 extremities to command digits warm well perfused Moderate bilateral facial edema Anterior mental and submental lacerations well apposed Severe anterior open bite Loose maxillary incisors Decreased subjective V3 sensation bilaterally Cranial nerves intact by exam No nasal septal hematoma Maxillofacial CT images personally reviewed by me showing comminuted displaced bilateral mandibular condyle fractures as well as maxillary incisor dentoalveolar fractures Assessment and Plan - Assessment (1) Closed fracture of dentoalveolar bone Status: Acute (2) Bilateral fracture of head of condyle and midline fracture of mandible Code(s): S02.69XA - Fracture of mandible of other specified site, initial encounter for closed fracture Status: Acute - Plan 63-year-old male status post fall, with symphyseal mandibular fracture in conjunction with comminuted displaced bilateral mandibular condyle head fracture in addition to maxillary incisor dentoalveolar fracture Risk benefits alternative treatments discussed All questions answered and the patient and patient's family expressed understanding Specifically discussed with patient that the recommendation will be for open reduction internal fixation of the symphyseal fracture as well as maximum angular fixation as treatment of his condylar fractures Discussed at length that I would not recommend opening the temporomandibular joints as his condylar heads are comminuted and it would only increase the risk of ankylosis Therefore the recommended treatment would be for MMF of the condylar fractures, and ORIF only of the symphyseal fracture However advised the patient that he will likely have a postoperative open bite which will require follow-up As well patient expresses understanding that he will be in maximal mandibular fixation with his jaws wired shut for recommended 2-3 weeks, followed by dental elastics Patient reports that he will be returning home shortly after the surgery, and expresses understanding that he will need to seek follow-up once he arrives Patient currently scheduled for this Sunday
[2018-07-25] MEDS: Sod Chloride 0.9% Inj 1,000 ML IV.CONT SCH ×3 (05:47→20:23)
[2018-07-25] MEDS: Morphine Inj 4 MG/ML Vial IV.PUSH PRN ×3 (05:48→15:41)
[2018-07-25] MEDS: Pantoprazole Inj 40 MG Vial IV.PUSH SCH (05:48)
--- NOTE | 2018-07-25 07:07 | XR ---
EXAM DATE: 07/25/2018 12:00 AM EDT AGE/SEX: 63 years / Male INDICATIONS: Short of breath, follow up trauma CLINICAL DATA: This is the patient's subsequent encounter. Patient reports that signs and symptoms h ave been present for 2 days and indicates a pain score of 5/10. MEDICAL/SURGICAL HISTORY: . fall, wrist fracture, mandible fracture None. COMPARISON: C, CHEST 1V SINGLE AP, 07/23/2018. . FINDINGS: No new focal pleural or parenchymal opacities. The cardiomediastinal contours are unremarkable. Left lateral sixth rib nondisplaced deformity is unchanged. CONCLUSION: 1. No acute abnormality or significant interval change. Electronically signed by: Jose Toribio MD 07/25/2018 7:06 AM EDT
[2018-07-25 08:45] LABS: Baso % (Auto) 0.5 % (0.0-2.0); Eos # (Auto) 0.1 th/mm3 (0.0-0.4); Eos % (Auto) 1.4 % (0.0-4.0); Hematocrit 37.9 % (39.0-51.0); Hemoglobin 13.2 gm/dL (13.0-17.0); Lymph # (Auto) 0.9 th/mm3 (1.0-4.8); Lymph % (Auto) 15.6 % (9.0-44.0); Mean Corpuscular HGB Conc 34.7 % (32.0-36.0); Mean Corpuscular Hemoglobin 35.2 pg (27.0-34.0); Mean Corpuscular Volume 101.3 fL (80.0-100.0); Mean Platelet Volume 9.4 fL (7.0-11.0); Mono # (Auto) 0.9 th/mm3 (0.0-0.9); Mono % (Auto) 15.1 % (0.0-8.0); Neut # (Auto) 3.8 th/mm3 (1.8-7.7); Neut % (Auto) 67.4 % (16.0-70.0); Platelet Count 138 th/mm3 (150-450); Red Blood Count 3.74 mil/mm3 (4.50-5.90); Red Cell Distribution Width 12.6 % (11.6-17.2); White Blood Count 5.7 th/mm3 (4.0-11.0)
[2018-07-25] MEDS: Multivitamin Inj 10 ML, Thiamine Inj 100 MG, Folic Acid Inj 1 MG in Sodium Chlor 0.9% I... IV.SIG SCH (08:49)
[2018-07-25 09:19] LABS: Albumin 3.3 g/dL (3.4-5.0); Anion Gap 8 meq/L (5-15); Aspartate Aminotransferase 19 U/L (15-37); Blood Urea Nitrogen 4 mg/dL (7-18); Calcium 8.2 mg/dL (8.5-10.1); Carbon Dioxide 28.3 meq/L (21.0-32.0); Chloride 102 meq/L (98-107); Glomerular Filtration Rate Greater Than 89 mL/min (>89); Glucose,Random 94 mg/dL (74-106); Potassium 3.5 meq/L (3.5-5.1); Sodium 138 meq/L (136-145)
[2018-07-25 09:27] LABS: Alanine Aminotransferase 25 U/L (12-78); Alkaline Phosphatase 77 U/L (45-117)
[2018-07-25] MEDS: Sodium Chloride 0.9% 2 ML Flush BID IV.FLUSH SCH ×2 (10:07→20:22)
--- NOTE | 2018-07-25 12:35 | P.PN ---
Subjective Interval history: Pain controlled Reports insomnia Tolerating liquids Physical Exam Vital signs: Vital Signs 07/24/18 16:00 07/24/18 17:55 07/24/18 19:15 Temperature 98.8 F 98.0 F Pulse Rate 90 79 Respiratory Rate 18 17 Blood Pressure 167/94 H 164/90 H Pulse Oximetry 96 96 96 07/24/18 20:00 07/25/18 00:00 07/25/18 04:00 Temperature 99.3 F 98 F 98.9 F Pulse Rate 76 83 83 Respiratory Rate 18 18 18 Blood Pressure 179/93 H 173/99 H 170/89 H Pulse Oximetry 99 96 96 07/25/18 08:00 07/25/18 10:46 Temperature 98.4 F Pulse Rate 77 Respiratory Rate 18 Blood Pressure 155/87 H Pulse Oximetry 95 95 Intake & Output 07/24/18 07/25/18 07/25/18 18:59 06:59 18:59 Intake Total 2904.0 / 2904.0 1000 / 1000 Output Total 1377 / 1377 Balance 1527.0 / 1527.0 1000 / 1000 Weight 64.3 kg Intake: IV 2004.0 / 2004.0 1000 / 1000 NS Inj 1,000 ML @ 100 mls/hr IV 1484 / 1484 1000 / 1000 .CONT .Q10H [facility] Rx#:[id number] MVI-12 Inj 10 ML Thiamine Inj 520.0 / 520.0 100 MG Folvite Inj 1 MG In NS Inj 500 ML @ 127.8 mls/hr IV. SIG DAILY [facility] Rx#:[id number] Oral 900 / 900 Output: Urine 1377 / 1377 Other: # Voids 1 3 Date of Last Bowel Movement 07/24/18 Narrative: GENERAL: 63-year-old well-nourished, well developed male lying in bed in no acute distress. SKIN: Warm and dry. Bilateral facial edema noted. HEAD: Normocephalic. EYES: Pupils equal and round. No scleral icterus. CARDIOVASCULAR: Regular rate and rhythm. RESPIRATORY: No accessory muscle use. Lungs clear to auscultation bilaterally. GASTROINTESTINAL: Abdomen soft, non-tender, nondistended. + BS. MUSCULOSKELETAL: Extremities without cyanosis, or edema. MAEW, + perfused NEUROLOGICAL: Awake and alert. Garbled speech. Results - Labs CBC & Chem 7: 07/25/18 07:26 10/25/18 07:26 Laboratory Results - last 24 hr 07/25/18 07/25/18 07:26 07:26 WBC 5.7 RBC 3.74 L Hgb 13.2 Hct 37.9 L MCV 101.3 H MCH 35.2 H MCHC 34.7 RDW 12.6 Plt Count 138 L MPV 9.4 Neut % (Auto) 67.4 Lymph % (Auto) 15.6 [place] % (Auto) 15.1 H Eos % (Auto) 1.4 Baso % (Auto) 0.5 Neut # (Auto) 3.8 Lymph # (Auto) 0.9 L [place] # (Auto) 0.9 Eos # (Auto) 0.1 Baso # (Auto) 0.0 WBC Differential . Differential Comment Auto diff final Sodium 138 Potassium 3.5 Chloride 102 Carbon Dioxide 28.3 Anion Gap 8 BUN 4 L Creatinine 0.67 Estimated GFR Greater than 89 Random Glucose 94 Calcium 8.2 L Total Bilirubin 0.9 AST 19 ALT 25 Alkaline Phosphatase 77 Total Protein 7.0 Albumin 3.3 L - Imaging Impressions Chest X-Ray 07/25/18 00:00 CONCLUSION: 1. No acute abnormality or significant interval change. Assessment and Plan - Plan [place]: Tripped and fell down stairs at [facility]. No LOC. GCS =12. ETOH 317. INJURIES: BILAT mandibular condyle fxs Maxilla fx LEFT radius fx (non-op) BILAT mandibular condyle fxs, Maxilla fx OMFS consulted Operative management scheduled for Sunday Liquid diet today Pain control-added liquid Hycet Bowel regimen LEFT radius fx Orthopedics consulted Nonoperative management Maintain splint NWB LUE Pain control Bowel regimen OOB-PT/OT ordered ETOH use Monitor for s/s of DTs Plan of care discussed with patient and RN at bedside. Collaborating Trauma surgeon agrees with plan. Case management consulted to assist with discharge planning.
--- NOTE | 2018-07-25 14:10 | ECG ---
Date Performed: 07/25/2018 Time Performed: 08:02:52 PTAGE: 63 years EKG: Sinus rhythm NORMAL ECG NO PREVIOUS TRACING DOCTOR: Shayne Figueredo Interpretating Date/Time 07/25/2018 14:06:59
[2018-07-25] MEDS: Acetaminophen-HYDROcodone 325/7.5 Liq 15 ML UDC NG/OG PRN (20:19)
[2018-07-26] MEDS: Acetaminophen-HYDROcodone 325/7.5 Liq 15 ML UDC NG/OG PRN (00:10)
[2018-07-26 04:18] LABS: Baso % (Auto) 0.3 % (0.0-2.0); Eos # (Auto) 0.1 th/mm3 (0.0-0.4); Eos % (Auto) 2.2 % (0.0-4.0); Hematocrit 39.9 % (39.0-51.0); Hemoglobin 13.6 gm/dL (13.0-17.0); Lymph # (Auto) 0.7 th/mm3 (1.0-4.8); Lymph % (Auto) 11.4 % (9.0-44.0); Mean Corpuscular HGB Conc 34.2 % (32.0-36.0); Mean Corpuscular Hemoglobin 35.1 pg (27.0-34.0); Mean Corpuscular Volume 102.6 fL (80.0-100.0); Mean Platelet Volume 9.1 fL (7.0-11.0); Mono # (Auto) 0.8 th/mm3 (0.0-0.9); Mono % (Auto) 12.9 % (0.0-8.0); Neut # (Auto) 4.4 th/mm3 (1.8-7.7); Neut % (Auto) 73.2 % (16.0-70.0); Platelet Count 136 th/mm3 (150-450); Red Blood Count 3.88 mil/mm3 (4.50-5.90); Red Cell Distribution Width 12.6 % (11.6-17.2)
[2018-07-26 04:48] LABS: Anion Gap 7 meq/L (5-15); Blood Urea Nitrogen 3 mg/dL (7-18); Calcium 8.6 mg/dL (8.5-10.1); Carbon Dioxide 27.5 meq/L (21.0-32.0); Chloride 104 meq/L (98-107); Glomerular Filtration Rate Greater Than 89 mL/min (>89); Glucose,Random 96 mg/dL (74-106); Potassium 3.6 meq/L (3.5-5.1); Sodium 138 meq/L (136-145)
[2018-07-26] MEDS: Pantoprazole Inj 40 MG Vial IV.PUSH SCH (05:55)
[2018-07-26] MEDS: Multivitamin Inj 10 ML, Thiamine Inj 100 MG, Folic Acid Inj 1 MG in Sodium Chlor 0.9% I... IV.SIG SCH (08:29)
[2018-07-26] MEDS: Sodium Chloride 0.9% 2 ML Flush BID IV.FLUSH SCH ×2 (08:30→22:15)
--- NOTE | 2018-07-26 08:41 | P.PNNPSY ---
- Behavior Intact: Impulsive/agitated - Cognitive Intact: Cognitive, Attention/concentration, Confused/orientation, Insight/ awareness, Judgment/problem solving, Memory - Progress Notes/Response to Treatment Contents of Sessions: Adjustment, Level of consciousness Time with Patient: 15 minutes Premorbid Psychological Status: Premorbid Cognitive, Emotional and Behavioral Status: Tenuous. The patient has high school years of education and a sporadic work history prior to this injury. The patient has unknown prior psychiatric difficulties, as described above. Substance abuse history includes ETOH. Behavioral Reactions of Patient and Family/Support System: Unable to Assess. The patients family is experiencing ongoing issues of adjustment given the nature of the injury, and this aspect of recovery will require ongoing monitoring. Emotional/Behavioral Status of Patient and Family/Support System: Unable to Assess. Pertinent issues, if appropriate to this patients clinical care, are described in detail above. Maximizing Acute Care Outcome: It is recommended that the patient be monitored for emergent behavioral impulsivity as the medical condition evolves. This patients neuropathological challenges may limit rehabilitation potential going forward, and these challenges will require specialized therapeutic skills to maximize outcome. Additionally, the patients family is experiencing ongoing issues of adjustment given the traumatic nature of the injury, and they may benefit from ongoing psychological assistance. At this point in the recovery process, the patient does not have cognitive capacity as the patient is unable to understand a situation and its likely consequences, nor is the patient able to manipulate information rationally. Cognitive capacity will be assessed throughout the recovery process. Anticipated Problems: Ongoing areas of concern will include behavioral impulsivity, lack of insight and judgment, which is expected to improve with time and treatment. Treatment Plan: This clinician will continue to follow with you throughout the course of this patients acute care treatment, and I will be available to meet with the patient s family/support system to facilitate their understanding and the ongoing care of their family member. The goals of neuropsychological intervention shall be both educational and supportive to the family/support system as is deemed clinically appropriate. Impression: 63 year old male s/p fall 2T ETOH intoxication. Progress Note Narrative: PTD 3. This patient is being monitored for S/S of CALVIN. ABS ordered. Trauma team started valium taper for CALVIN. Suggest d/cing valium taper if he discharges prior to taper ending. I will follow. - Diagnosis (1) Alcohol dependence in controlled environment Status: Acute
--- NOTE | 2018-07-26 10:42 | P.PN ---
Subjective Interval history: TRAUMA PTD: 2 Patient sitting up in bed. No distress noted. No acute events overnight. No complaints offered. Waiting on OR with OMFS. Physical Exam Vital signs: Vital Signs 07/25/18 10:46 07/25/18 12:00 07/25/18 16:00 Temperature 98.6 F 98.3 F Pulse Rate 69 79 Respiratory Rate 18 18 Blood Pressure 145/78 H 167/96 H Pulse Oximetry 95 96 99 07/25/18 20:00 07/26/18 00:00 07/26/18 04:00 Temperature 98.7 F 98.1 F 98.1 F Pulse Rate 86 78 86 Respiratory Rate 18 18 18 Blood Pressure 160/95 H 167/91 H 162/88 H Pulse Oximetry 95 95 95 07/26/18 08:00 Temperature 98.1 F Pulse Rate 81 Respiratory Rate 23 Blood Pressure 166/101 H Pulse Oximetry 97 Intake & Output 07/25/18 07/26/18 07/26/18 18:59 06:59 18:59 Intake Total 511.2 / 511.2 1000 / 1000 Balance 511.2 / 511.2 1000 / 1000 Weight 64.3 kg Intake: IV 511.2 / 511.2 1000 / 1000 NS Inj 1,000 ML @ 100 mls/hr IV 1000 / 1000 .CONT .Q10H [facility] Rx#:[id number] MVI-12 Inj 10 ML Thiamine Inj 511.2 / 511.2 100 MG Folvite Inj 1 MG In NS Inj 500 ML @ 127.8 mls/hr IV. SIG DAILY [facility] Rx#:[id number] Other: # Voids 3 5 Date of Last Bowel Movement 07/24/18 Narrative: GENERAL: This is a 63-year-old male sitting up in bed. No distress noted. SKIN: Warm and dry. Laceration abrasion to chin with sutures in place HEAD: Atraumatic. Normocephalic. Slight facial swelling noted EYES: PERRLA ENT: No nasal bleeding or discharge. Mucous membranes pink and moist. NECK: Trachea midline. No JVD. CARDIOVASCULAR: Regular rate and rhythm. RESPIRATORY: No accessory muscle use. Lungs are clear to auscultation. Breath sounds equal bilaterally. No distress or dyspnea. GASTROINTESTINAL: BS + x 4 quads. Abdomen soft, non-tender, nondistended. MUSCULOSKELETAL: Extremities without cyanosis, or edema. Left hand/wrist with splint in place and wrapped in [place] bandage. + peripheral pulses x 4 extremities. Warm with good capillary refill and sensation. MAEW. NEUROLOGICAL: Awake and alert. Normal speech and pattern. Results - Labs CBC & Chem 7: 07/26/18 03:55 07/26/18 03:55 Laboratory Results - last 24 hr 07/26/18 07/26/18 03:55 03:55 WBC 6.0 RBC 3.88 L Hgb 13.6 Hct 39.9 MCV 102.6 H MCH 35.1 H MCHC 34.2 RDW 12.6 Plt Count 136 L MPV 9.1 Neut % (Auto) 73.2 H Lymph % (Auto) 11.4 [place] % (Auto) 12.9 H Eos % (Auto) 2.2 Baso % (Auto) 0.3 Neut # (Auto) 4.4 Lymph # (Auto) 0.7 L [place] # (Auto) 0.8 Eos # (Auto) 0.1 Baso # (Auto) 0.0 WBC Differential . Differential Comment Auto diff final Sodium 138 Potassium 3.6 Chloride 104 Carbon Dioxide 27.5 Anion Gap 7 BUN 3 L Creatinine 0.61 Estimated GFR Greater than 89 Random Glucose 96 Calcium 8.6 Assessment and Plan - Assessment (1) Fracture of left radius Code(s): S52.92XA - Unspecified fracture of left forearm, initial encounter for closed fracture Status: Acute (2) Fall Code(s): W19.XXXA - Unspecified fall, initial encounter Status: Acute (3) Fracture, facial bones Code(s): S02.92XA - Unspecified fracture of facial bones, initial encounter for closed fracture Status: Acute (4) Bilateral fracture of head of condyle and midline fracture of mandible Code(s): S02.69XA - Fracture of mandible of other specified site, initial encounter for closed fracture Status: Acute (5) Alcohol dependence in controlled environment Code(s): F10.20 - Alcohol dependence, uncomplicated Status: Acute - Plan [place]: This is a 63-year-old male who sustained a mechanical fall. He tripped and fell down the stairs at the [place]. He fell face first and hit his jaw. No LOC. GCS originally 12. EtOH 317. INJURIES: BILAT manidibular condyle fxs Anterior / inferior Maxilla fx Lip laceration (2 / 7 sutures) LEFT chin laceration (1 suture) LEFT rib fx (6) LEFT radius fx (non-op) PMHx: Daily ETOH abuse Procedures: 07/26: ORIF for mandible today with OMFS Consults: OMFS. Orthopedics. Neuropsych. Case management. Diet: Currently n.p.o. for OR. Pulmonary: Encourage good pulmonary toileting. IS at bedside and pt encouraged to use. Rationale for use explained to patient, and verbalized understanding. PAIN Management: Hycet 7.5mg q4h. Morphine 4mg q3h for breakthrough pain. Fentanyl patch 50mcg. ETOH: VALIUM TAPER. Haldol 2 mg q 6h for agitation. Activity: OOB. PT and OT ordered. (GEETA FULTON) GI prophylaxis: Protonix 40 mg IV Bowel regimen: Senna liquid. MOM BID. LBM: 0 DVT prophylaxis: Mechanical VTE with SCDs. Chemical management TBD post OR. DC Planning: Case management consulted for assistance with final discharge disposition. Plan on discharge tomorrow, if pain is managed postop. Emotional support provided to patient and family at bedside and plan of care discussed. Discussed with RN at bedside. Discussed pt condition and plan of care with collaborating trauma surgeon. Patient is hemodynamically stable and being managed on the med/surg floor. The trauma team will round each day, and evaluate plan of care on a daily basis. BILAT manidibular condyle fxs Anterior / inferior Maxilla fx Lip laceration (2 / 7 sutures) LEFT chin laceration (1 suture) OMFS consulted and assisting in management and care 07/26: ORIF for mandible today Liquid diet, however n.p.o. for OR today Supportive care Pain management Encourage out of bed PT and OT ordered Bowel regimen Await further orders per OMFS regarding postop care Wash facial lacerations daily with soap and water. Pat dry. LEFT rib fx (6) O2 nasal cannula as needed Supportive care Aggressive pulmonary toileting Chest x-ray as needed Encourage out of bed PT and OT ordered Bowel regimen LEFT radius fx (non-op) Orthopedics consulted and assisting in management and care Currently nonoperative treatment Supportive care Pain management Encourage out of bed PT and OT ordered NWB LUE -sling for comfort and support Bowel regimen Follow-up with orthopedics outpatient EtOH abuse EtOH upon admission 317 Patient admits to daily EtOH use Monitor closely for signs and symptoms of DTs DT precautions MVI IV Begin Valium taper Haldol 2 mg every 6 hours for agitation Discussed the importance of refraining from alcohol use (1) Fracture of left radius Qualifiers: Encounter type: initial encounter Fracture type: closed Fracture morphology : unspecified fracture morphology (2) Fall Qualifiers: Encounter type: initial encounter Qualified Code(s): W19.XXXA - Unspecified fall, initial encounter (3) Fracture, facial bones Qualifiers: Encounter type: initial encounter Facial bone/location: unspecified facial bone Fracture type: open Qualified Code(s): S02.92XB - Unspecified fracture of facial bones, initial encounter for open fracture
[2018-07-26] MEDS ORDERED: Haloperidol Inj 5 MG/ML Ampul IV.PUSH PRN ×2 (10:50→16:53)
[2018-07-26] MEDS: Sod Chloride 0.9% Inj 1,000 ML IV.CONT SCH (11:00)
[2018-07-26] MEDS ORDERED: Chlorhexidine Gluconate 2% 1 Pack (2 Cloths) TOPICAL ONE (11:36)
[2018-07-26] MEDS ORDERED: Metoprolol Tartrate 25 MG Tablet PO ONE (11:36)
[2018-07-26] MEDS ORDERED: Sodium Chlor 0.9% Inj 500 ML IV.SIG SCH (12:00)
[2018-07-26] MEDS ORDERED: Sugammadex Inj 200 MG/2 ML Vial IV.PUSH ONE (12:29)
[2018-07-26] MEDS ORDERED: ceFAZolin 2 GM Premix Inj 2 GM/50 ML PIGGYBACK IV.SIG ONE (12:56)
[2018-07-26] MEDS ORDERED: Lidocaine PF 1% Inj 5 ML Syringe OTHER ONE (13:09)
[2018-07-26] MEDS ORDERED: Phenylephrine/NS 1000 MCG/10ML Syringe IV.PUSH ONE (13:09)
[2018-07-26] MEDS ORDERED: Chlorhexidine Gluconate 0.12% Liq 15 ML UDC SWISH-SPIT ONE (14:25)
[2018-07-26] MEDS ORDERED: fentaNYL Citrate Inj 100 MCG/2 ML Ampul ONE (15:38)
--- NOTE | 2018-07-26 18:08 | P.OP ---
- Preoperative Diagnosis (1) Bilateral fracture of head of condyle and midline fracture of mandible - Postoperative Diagnosis (1) Bilateral fracture of head of condyle and midline fracture of mandible Date of procedure: 07/26/18 Procedure: Maxillomandibular fixation and symphyseal fracture open reduction internal fixation (03510) Surgeon: Lobito Presley MD Operation and Findings: 63-year-old male who presented with bilateral condylar fractures and a symphyseal fracture. Risk benefits alternative treatments discussed. All questions answered and the patient and patient's family expressed understanding. Patient elected to assume the risks of maxillomandibular fixation and open reduction internal fixation of the above fractures. Informed consent obtained. The surgical site was marked in the preoperative holding bay. The patient was given antibiotics on-call to the operating room. The patient was taken to the operating room and all pressure points were padded. A surgical timeout was performed. After the smooth induction of general anesthesia, the surgical site was prepped and draped in the usual sterile fashion. The mental area was instilled with quarter percent Marcaine. The patient had multiple anterior maxillary incisor dental alveolar fractures. Great care was taken to avoid any further loosening of these teeth, which were already tenuous at best. Maxillary and mandibular arch bars were placed using interdental wiring. Anteriorly the loose teeth were grouped by 2 and gently wired to the arch bar. This gave excellent stabilization of the loose teeth. The patient was brought into [facility] using 24-gauge wire. Following this an anterior labial buccal incision was made. Using the periosteal elevator, the symphyseal fracture was appreciated. A 4-hole 2 mm plate was selected, contoured, and fixated using locking screws whose length was determined using the depth gauge. Great care was taken to avoid injury to the mental nerves bilaterally. The mentalis was resuspended using multiple interrupted 3-0 Vicryl. The incision was reapproximated using a running locking 3-0 Vicryl. Following this the patient was taken out of [facility] to ensure no restrictions and opening of the mandible. Following this the patient was placed back into [facility] using 24-gauge wire. All needle sponge and instrument counts were correct x2. The patient was awoken from anesthesia and arrived stable and doing well to the PACU.
[2018-07-26] MEDS: Sennosides Liq 8.8 MG/5 ML UDC PO SCH (22:15)
[2018-07-27 05:00] LABS: Hematocrit 41.1 % (39.0-51.0); Hemoglobin 14.3 gm/dL (13.0-17.0); Lymph # (Auto) 0.4 th/mm3 (1.0-4.8); Mean Corpuscular HGB Conc 34.7 % (32.0-36.0); Mean Corpuscular Hemoglobin 35.1 pg (27.0-34.0); Mean Corpuscular Volume 101.2 fL (80.0-100.0); Mean Platelet Volume 9.8 fL (7.0-11.0); Mono # (Auto) 0.3 th/mm3 (0.0-0.9); Mono % (Auto) 4.2 % (0.0-8.0); Neut # (Auto) 7.4 th/mm3 (1.8-7.7); Neut % (Auto) 90.8 % (16.0-70.0); Platelet Count 186 th/mm3 (150-450); Red Blood Count 4.07 mil/mm3 (4.50-5.90); Red Cell Distribution Width 12.3 % (11.6-17.2); White Blood Count 8.1 th/mm3 (4.0-11.0)
[2018-07-27] MEDS: Pantoprazole Inj 40 MG Vial IV.PUSH SCH (05:09)
[2018-07-27 05:21] LABS: Anion Gap 7 meq/L (5-15); Blood Urea Nitrogen 5 mg/dL (7-18); Calcium 8.5 mg/dL (8.5-10.1); Carbon Dioxide 28.6 meq/L (21.0-32.0); Chloride 104 meq/L (98-107); Glomerular Filtration Rate Greater Than 89 mL/min (>89); Glucose,Random 115 mg/dL (74-106); Potassium 3.8 meq/L (3.5-5.1); Sodium 140 meq/L (136-145)
--- NOTE | 2018-07-27 06:05 | XR ---
EXAM DATE: 07/27/2018 5:33 AM EDT AGE/SEX: 63 years / Male INDICATIONS: Shortness of breath. CLINICAL DATA: This is the patient's subsequent encounter. Patient reports that signs and symptoms h ave been present for 4 - 6 days and indicates a pain score of 0/10. MEDICAL/SURGICAL HISTORY: . Smoker. Appendectomy. COMPARISON: [facility] [place], CHEST 1V SINGLE AP, 07/25/2018. . FINDINGS: A single AP view of the chest demonstrates the lungs to be symmetrically aerated without evidence of mass, infiltrate or effusion. The cardiomediastinal contours are unremarkable. Osseous structures a re intact. CONCLUSION: The lungs are clear. Electronically signed by: Jigar Schmidt MD 07/27/2018 6:04 AM EDT
[2018-07-27] MEDS: Sodium Chloride 0.9% 2 ML Flush BID IV.FLUSH SCH (08:23)
[2018-07-27] MEDS: Sennosides Liq 8.8 MG/5 ML UDC PO SCH (08:23)
--- NOTE | 2018-07-27 11:22 | P.DS ---
Date of admission: 07/24/18 00:40 Primary care physician: UNKNOWN Attending physician on discharge: Fab Martin Anticipated date of discharge: 07/27/18 Brief History from admission: Mechanical fall. DS: Diagnosis - Discharge Diagnosis (1) Fracture of left radius Status: Acute (2) Fall Status: Acute (3) Fracture, facial bones Status: Acute (4) Bilateral fracture of head of condyle and midline fracture of mandible Status: Acute (5) Alcohol dependence in controlled environment Status: Acute DS: Medications - Discharge Medications Prescriptions: chlorhexidine gluconate [Peridex] 15 ml MUCOUS MEMBRANE QID 30 Days ml hydrocodone-acetaminophen 15 ml NG/OG Q4H PRN 3 Days #270 ml PRN Reason: Pain > 3 ondansetron [Zofran ODT] 4 mg PO Q6H PRN 7 Days #28 tab PRN Reason: Nausea DS: Summary Hospital Course: [place]: This is a 63-year-old male who sustained a mechanical fall. He tripped and fell down the stairs at the [facility]. He fell face first and hit his jaw. No LOC. GCS originally 12. EtOH 317. INJURIES: BILAT manidibular condyle fxs Anterior / inferior Maxilla fx Lip laceration (2 / 7 sutures) LEFT chin laceration (1 suture) LEFT rib fx (6) LEFT radius fx (non-op) PMHx: Daily ETOH abuse Procedures: 07/26: ORIF for mandible today with OMFS Consults: OMFS. Orthopedics. Neuropsych. Case management. Patient would really like to go home. He is from out of town, and the group that he came with are driving back to [place] today. The patient is now tolerating a po diet. Eating and drinking well. Pain is being managed well with PO pain medications, and patient is being a provided with a script for pain meds upon discharge. [This patient will be prescribed narcotic pain medications due to his traumatic injuries. The patient has a normal physiological response to severe traumatic injuries and surgery. He will need acute pain management with prescribed narcotic treatment. The [employer] prescription drug monitoring program database has been queried.] (NO driving while taking narcotic pain medication enforced to patient.) Pt is having regular bowel movements, and have recommended to patient to continue with stool softeners while taking narcotic pain medications to prevent constipation. Pt has been participating in PT and OT while admitted at [place] and has been ambulating with their assistance and independently. No home PT needs. All follow up appointments have been provided and discussed with the patient. It is recommended that the patient keeps all his follow up appointments for continued recovery. Patient will need to follow-up with OMFS and orthopedics, and additionally his primary care physician when he returns home to [place]. Patient verbalized understanding. Discussed with patient the importance of good oral hygiene. Provided prescription for Peridex 4 times a day. Additionally provided with a prescription for Zofran sublingual. Patient is to keep wire cutters within reach at all times, since his mouth is wired shut. Patient's condition and plan of care discussed with collaborating trauma surgeon. He is agreeable to plan for discharge today. Therefore, the patient is stable to be safely discharged home from a trauma surgery standpoint. Thank you for allowing us to participate in his care. We wish Chaka the best in his recovery. BILAT manidibular condyle fxs Anterior / inferior Maxilla fx Lip laceration (2 / 7 sutures) LEFT chin laceration (1 suture) OMFS consulted and assisting in management and care 07/26: ORIF for mandible today Liquid diet -progress to soft diet as tolerated Good oral care with Peridex Zofran for nausea Supportive care Pain management Encourage out of bed PT and OT ordered Bowel regimen Collaborated with Dr. Presley -he is agreeable to discharge home today Wash facial lacerations daily with soap and water. Pat dry. LEFT rib fx (6) O2 nasal cannula as needed Supportive care Aggressive pulmonary toileting Chest x-ray as needed A.m. chest x-ray stable Encourage out of bed PT and OT ordered Bowel regimen LEFT radius fx (non-op) Orthopedics consulted and assisting in management and care Currently nonoperative treatment Supportive care Pain management Encourage out of bed PT and OT ordered NWB LUE -sling for comfort and support Bowel regimen Follow-up with orthopedics outpatient EtOH abuse EtOH upon admission 317 Patient admits to daily EtOH use Monitor closely for signs and symptoms of DTs DT precautions MVI IV Begin Valium taper Haldol 2 mg every 6 hours for agitation Discussed the importance of refraining from alcohol use - Time Spent with Patient Total time spent providing and/or coordinating discharge services: Greater than 30 minutes - Quality: VTE Deep Vein Thrombosis/Pulmonary Embolism Present on Admission: No Exam Vital signs: Vital Signs 07/26/18 16:15 07/26/18 17:42 07/26/18 20:00 Temperature 98.0 F 97.7 F Pulse Rate 100 H 92 H Respiratory Rate 22 18 Blood Pressure 177/98 H 163/102 H Pulse Oximetry 99 99 99 07/27/18 00:00 07/27/18 04:35 07/27/18 08:00 Temperature 97.3 F L 97.9 F 97.6 F Pulse Rate 74 74 82 Respiratory Rate 20 20 20 Blood Pressure 166/103 H 149/93 H 156/93 H Pulse Oximetry 96 97 97 Intake & Output 07/26/18 07/27/18 07/27/18 18:59 06:59 18:59 Intake Total 2900 / 2900 200 / 200 Output Total 540 / 540 800 / 800 Balance 2360 / 2360 -600 / -600 Weight 64.3 kg Intake: IV 1300 / 1300 NS Inj 1,000 ML @ 100 mls/hr IV 800 / 800 .CONT .Q10H MIRZA Rx#:[id number] MVI-12 Inj 10 ML Thiamine Inj 500 / 500 100 MG Folvite Inj 1 MG In NS Inj 500 ML @ 127.8 mls/hr IV. SIG DAILY MIRZA Rx#:[id number] Oral 200 / 200 Anesthesia Amount 1600 / 1600 Output: Urine 500 / 500 800 / 800 Estimated Blood Loss 40 / 40 Other: # Voids 1 Date of Last Bowel Movement 07/24/18 # Bowel Movements 0 Narrative: GENERAL: This is a 63-year-old male sitting up in bed. No distress noted. SKIN: Warm and dry. Laceration abrasion to chin with sutures in place HEAD: Atraumatic. Normocephalic. Slight facial swelling noted EYES: PERRLA ENT: No nasal bleeding or discharge. Mucous membranes pink and moist. Jaw is wired shut. NECK: Trachea midline. No JVD. CARDIOVASCULAR: Regular rate and rhythm. RESPIRATORY: No accessory muscle use. Lungs are clear to auscultation. Breath sounds equal bilaterally. No distress or dyspnea. GASTROINTESTINAL: BS + x 4 quads. Abdomen soft, non-tender, nondistended. MUSCULOSKELETAL: Extremities without cyanosis, or edema. Left hand/wrist with splint in place and wrapped in [place] bandage. + peripheral pulses x 4 extremities. Warm with good capillary refill and sensation. MAEW. NEUROLOGICAL: Awake and alert. Normal speech and pattern. Results Procedures completed during hospitalization: . Labs on day of discharge: Labs from last 24 hours 07/27/18 07/27/18 03:41 03:41 WBC 8.1 RBC 4.07 L Hgb 14.3 Hct 41.1 MCV 101.2 H MCH 35.1 H MCHC 34.7 RDW 12.3 Plt Count 186 D MPV 9.8 Neut % (Auto) 90.8 H Lymph % (Auto) 5.0 L Bond % (Auto) 4.2 Eos % (Auto) 0.0 Baso % (Auto) 0.0 Neut # (Auto) 7.4 Lymph # (Auto) 0.4 L Bond # (Auto) 0.3 Eos # (Auto) 0.0 Baso # (Auto) 0.0 WBC Differential . Differential Comment Auto diff final Sodium 140 Potassium 3.8 Chloride 104 Carbon Dioxide 28.6 Anion Gap 7 BUN 5 L Creatinine 0.59 L Estimated GFR Greater than 89 Random Glucose 115 H Calcium 8.5 - Impressions ITS Impressions Pelvis X-Ray 07/23/18 22:37 CONCLUSION: Negative AP pelvis. Cervical Spine CT 07/23/18 22:38 CONCLUSION: 1. No acute bony injury seen. 2. Degenerative change as described above. Face CT 07/23/18 22:38 CONCLUSION: 1. Fracturing of the mandibular condyle regions bilaterally with displacement of the condylar heads. 2. Fracturing through the anterior aspect of the mandible slightly to the left of midline. 3. Fracturing the anterior inferior aspect of the maxilla around the upper incisor teeth. Head CT 07/23/18 22:38 CONCLUSION: 1. No acute intracranial abnormality. 2. Mild cortical atrophy. 3. Mandibular condyle fractures. The patient is to have a CT of the facial bones. . Wrist X-Ray 07/24/18 00:00 CONCLUSION: Minimally displaced oblique transverse distal left radial fracture Chest X-Ray 07/27/18 06:00 CONCLUSION: The lungs are clear. Discharge Plan - Discharge Disposition Patient Disposition: 01 Discharge Home - Discharge Condition Condition: Stable - Discharge Order Discharge Orders: Discharge Order (Routine); Ordered 07/27/18 Ordered By: Ruby Hernandez - Discharge Details Anticipated Discharge Date: 07/27/18 - Physicians Team Primary Care Provider: UNKNOWN, Attending Provider: Fab Martin Other Providers: Eddi Rick MD ; Mahendra Mckeon MD ; Systems, [employer] ; Fab Martin MD ; Ruby Hernandez ARNP ; Chavez Sinha MD ; Candelaria Bonilla MD ; Abida Guajardo ARNP ; Yoko Mcbride MD ; Farhat Redman, PhD ; Lobito Presley MD ; Morgan Domingo MD
[2018-07-27 12:11] VITALS: BP 164/97; PULSE 95; TEMP 98.1; O2SAT 98
[2018-07-27 13:20] VITALS: RESP 18
== END 2018-07-27 14:26 | disposition home or self-care (01) ==
LOC: NEPC 22:33 → NEDA 07-24 00:40 → NEDH 07-24 04:45 → H7ONC 07-24 13:15 → N05 07-24 20:28
PROVIDERS: ADMIT Surgery; ATTEND Surgery
PROC: ORIFMAN (2018-07-26 13:09)